=== PATIENT | female | born 1935 | race Caucasian/White ===

== ENCOUNTER 2024-05-03 10:16 | Outpatient (RCR) | payer MEDICARE, MEDICAID, SELFPAY | END 2024-08-23 13:53 | disposition admitted as inpatient to this hospital (09) | LOC: HO.WCC 10:16 | PROVIDERS: PCP Family Medicine; Referring Provider Family Medicine; Visit Provider Physician Assistant | DX: L89.150 Pressure ulcer of sacral region, unstageable (principal); E44.1 Mild protein-calorie malnutrition; Z79.52 Long term (current) use of systemic steroids; Z79.891 Long term (current) use of opiate analgesic; Z79.899 Other long term (current) drug therapy | CPT/HCPCS: 10060; 11042; 87070; 87077; 87147; 87205; 99212; 99213 ==